=== PATIENT | female | born 1980 | race American Indian/Alaskan Native ===

== ENCOUNTER 2016-05-04 19:34 | Inpatient (IN) | payer OTHER, MEDICAID ==
[2016-05-04] MEDS ORDERED: BRETHINE IVP PRN (20:33)
[2016-05-04] MEDS ORDERED: PHENERGAN PO PRN (20:33)
[2016-05-04] MEDS ORDERED: ZOFRAN IV PRN (20:33)
[2016-05-04] MEDS ORDERED: BRETHINE SUB-Q PRN (20:33)
[2016-05-04] MEDS ORDERED: SUBLIMAZE IV PRN (20:33)
[2016-05-04] MEDS ORDERED: STADOL IV PRN (20:33)
[2016-05-04] MEDS ORDERED: NARCAN 0.4 MG/1 ML IV PRN (20:33)
[2016-05-04] MEDS ORDERED: MINERAL OIL PO PRN (20:33)
[2016-05-04] MEDS ORDERED: ePHEDrine SULFATE IV PRN (20:33)
--- NOTE | 2016-05-04 20:42 | History and Physical Report ---
History of Present Illness Date of examination: 05/04/16 Date of admission: 05/04/16 19:34 Chief complaint: Induction of labor History of present illness: Pt is a 35yo BF EDC 05/01/16; EGA 40 3/7 weeks presents from [facility] for induction of labor due to elevated BP's and LGA . BPP was 8/10 and EFW 4442gms (98%). She received care at [facility] since 11 weeks, and course has been unremarkable except for AMA and Morbid Obesity. records are available and GBS is Positive. 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 Social history: no significant social history, single - Obstetrical History Expected Date of Delivery: 05/01/16 Actual Gestation: 40 Week(s) 4 Day(s) : 5 Medications and Allergies Allergies Allergy/AdvReac Type Severity Reaction Status Date / Time No Known Allergies Allergy Verified 05/04/16 20:51 Home Medications Medication Instructions Recorded Confirmed Last Taken Type Vit-Fe Fumar-FA [ 1 tab PO QDAY 05/05/16 05/05/16 Unknown History Vitamin] Review of Systems All systems: negative - Physical Exam Breasts: Positive: deferred Cardiovascular: Regular rate Lungs: Positive: Clear to auscultation Abdomen: Positive: normal appearance Genitourinary (Female): Positive: normal external genitalia Vagina: Positive: normal moisture Uterus: Positive: enlarged Extremities: Positive: normal - Obstetrical FHR: category 1 Uterine Contraction Monitor Mode: External Cervical Dilatation: 3 Cervical Effacement Percentage: 50 station: -2 Uterine Contraction Pattern: Irregular Uterine Contraction Intensity: Mild Results Result Diagrams: 05/04/16 22:45 All other labs normal. Ultrasound: report reviewed ([facility] 810) Assessment and Plan - Patient Problems (1) 40 weeks gestation of Onset Date: 05/04/16 Current Visit: Yes Status: Acute Plan to address problem: A: IUP @ 40 4/7 weeks Morbid Obesity AMA PIH LGA infant P: Admit for pitocin induction of labor (2) LGA (large for gestational age) fetus affecting management of mother Onset Date: 05/04/16 Current Visit: Yes Status: Acute
[2016-05-04] MEDS ORDERED: PITOCin/NS 30 UNIT/500ML 500 ML IV SCH (21:00)
[2016-05-04 23:01] LABS: Hematocrit 27.9 % (30.3-42.9); Hemoglobin 8.9 gm/dl (10.1-14.3); Mean Corpuscular HGB Conc 32 % (30-34); Mean Corpuscular Hemoglobin 25 pg (28-32); Mean Corpuscular Volume 77 fl (79-97); Red Blood Count 3.61 M/mm3 (3.65-5.03); Red Cell Distribution Width 16.7 % (13.2-15.2)
[2016-05-04 23:54] LABS: Platelet Count 87 K/mm3 (140-440)
[2016-05-05] MEDS: LACTATED RINGERS 1,000 ML IV SCH ×3 (01:10→14:23)
[2016-05-05] MEDS: PITOCin/NS 30 UNIT/500ML 30 UNIT/500 ML BAG IV SCH ×7 (08:45→13:19)
--- NOTE | 2016-05-05 13:06 | Progress Note ---
Assessment and Plan - Patient Problems (1) 40 weeks gestation of Onset Date: 05/04/16 Current Visit: Yes Status: Acute Plan to address problem: A: IUP @ 40 4/7 weeks Morbid Obesity AMA PIH - BP's stable. Not on magnesium sulfate or antihypertensive medication LGA infant Thrombocytopenia P: Will continue to monitor tracing, and proceed with Operative delivery if no improvement in 1 hour or significant cervical change. Discussed plan with family members. Will repeat PIH labs (2) LGA (large for gestational age) fetus affecting management of mother Onset Date: 05/04/16 Current Visit: Yes Status: Acute Subjective - Subjective Date of service: 05/05/16 Principal diagnosis: IUP @ 40 4/7 weeks; PIH; Morbid Obesity; AMA; LGA Interval history: Pt is currently on pitocin 12mu/min and alfonso q 2-4 mins. monitoring variability is not great, but has areas of reactivity. Patient reports: loss of fluid (AROM), movement normal, contractions, no new complaints, no vaginal bleeding Objective - Vital Signs Vital Signs: Vital Signs - 12hr 05/05/16 05/05/16 05/05/16 02:13 02:29 03:42 Temperature 98.3 F Pulse Rate 105 H 115 H Respiratory 20 Rate Blood Pressure 127/67 121/58 05/05/16 05/05/16 05/05/16 05:12 06:00 06:42 Temperature 98.6 F Pulse Rate 108 H 96 H Respiratory Rate Blood Pressure 119/58 143/74 05/05/16 05/05/16 05/05/16 07:00 07:20 07:50 Temperature 97.0 F L Pulse Rate 109 H 103 H Respiratory Rate Blood Pressure 127/70 127/64 05/05/16 05/05/16 05/05/16 08:21 08:50 09:20 Temperature Pulse Rate 93 H 105 H 114 H Respiratory Rate Blood Pressure 135/71 139/75 131/81 05/05/16 05/05/16 05/05/16 09:50 10:20 10:50 Temperature Pulse Rate 106 H 100 H 100 H Respiratory Rate Blood Pressure 134/74 128/72 119/58 05/05/16 05/05/16 05/05/16 11:20 11:51 12:51 Temperature Pulse Rate 104 H 107 H 106 H Respiratory Rate Blood Pressure 133/68 141/64 118/74 - Exam Cardiovascular: Regular rate Abdomen: Present: normal appearance Uterus: Present: normal, fundal height at umbilicus FHR: category 2 (Decreased variability) Uterine Contraction Monitor Mode: Internal Cervical Dilatation: 3 Cervical Effacement Percentage: 50 station: -2 Uterine Contraction Pattern: Regular Uterine Tone Measurement Phase: Contraction Uterine Contraction Intensity: Mild - Labs Labs: Abnormal Labs 05/04/16 22:45 RBC 3.61 L Hgb 8.9 L Hct 27.9 L MCV 77 L MCH 25 L RDW 16.7 H Plt Count 87 L Laboratory Results - last 24 hr 05/04/16 05/04/16 22:45 22:45 WBC 10.0 RBC 3.61 L Hgb 8.9 L Hct 27.9 L MCV 77 L MCH 25 L MCHC 32 RDW 16.7 H Plt Count 87 L Blood Type A POSITIVE Antibody Screen Negative
[2016-05-05 13:41] LABS: Hematocrit 26.5 % (30.3-42.9); Hemoglobin 8.4 gm/dl (10.1-14.3); Mean Corpuscular HGB Conc 32 % (30-34); Mean Corpuscular Volume 77 fl (79-97); Red Blood Count 3.45 M/mm3 (3.65-5.03); Red Cell Distribution Width 17.4 % (13.2-15.2); White Blood Count 8.3 K/mm3 (4.5-11.0)
[2016-05-05 13:42] LABS: Mean Corpuscular Hemoglobin 24 pg (28-32)
[2016-05-05 13:43] LABS: Platelet Count 78 K/mm3 (140-440)
[2016-05-05 13:48] LABS: Alanine Aminotransferase 18 units/L (7-56); Albumin 3.5 g/dL (3.9-5); Albumin/Globulin Ratio 1.1 %; Alkaline Phosphatase 101 units/L (35-129); Anion Gap 20 mmol/L; Bilirubin,Total 0.3 mg/dL (0.1-1.2); Blood Urea Nitrogen 5 mg/dL (7-17); Calcium 8.8 mg/dL (8.4-10.2); Carbon Dioxide 20 mmol/L (22-30); Chloride 100.6 mmol/L (98-107); Glucose 70 mg/dL (65-100); Potassium 3.9 mmol/L (3.6-5.0); Sodium 137 mmol/L (137-145); Total Protein 6.8 g/dL (6.3-8.2)
[2016-05-05] MEDS ORDERED: PEPCID IV ONE (16:49)
[2016-05-05] MEDS ORDERED: BICITRA PO ONE (16:49)
[2016-05-05] MEDS ORDERED: REGLAN IV ONE (16:49)
[2016-05-05 16:52] LABS: Bilirubin,Urine NEG (Negative); Blood,Urine SM (Negative); Ketones,Urine NEG (Negative); Leukocyte Esterase,Urine TR (Negative); Mucus,Urine FEW /HPF; Nitrite,Urine NEG (Negative); Protein,Urine <15 mg/dL mg/dL (Negative); Urobilinogen,Urine < 2.0 mg/dL (<2.0)
[2016-05-05] MEDS ORDERED: NACL 0.9% 500 ML 500 ML IV ONE (16:59)
[2016-05-05] MEDS ORDERED: ANCEF/STERILE WATER 2 GM/20 ML 2 GM/20 ML SYRINGE IV NR (17:00)
[2016-05-05] MEDS ORDERED: PITOCin/NS 20 UNIT/1000ML DRIP 20 UNITS/1,000 ML BAG IV NR (17:00)
[2016-05-05] MEDS ORDERED: LACTATED RINGERS 1,000 ML IV NR (17:00)
[2016-05-05] MEDS ORDERED: QUELICIN ONE (17:28)
[2016-05-05] MEDS ORDERED: DIPRIVAN 10 MG/ML IV ONE (17:29)
[2016-05-05] MEDS ORDERED: SUBLIMAZE ONE ×2 (17:30→18:30)
[2016-05-05] MEDS ORDERED: ANCEF/STERILE WATER 2 GM/20 ML IV ONE (17:33)
[2016-05-05] MEDS ORDERED: NACL 0.9% IR ONE (17:40)
[2016-05-05] MEDS ORDERED: WATER FOR IRRIG STERILE IR ONE (17:40)
[2016-05-05] MEDS: PITOCin/NS 20 UNIT/1000ML DRIP 20 UNIT/1,000 ML BAG IV SCH ×2 (17:46→18:40)
[2016-05-05] MEDS ORDERED: TORADOL ONE (17:56)
--- NOTE | 2016-05-05 18:47 | Operative Report ---
Operative Report Operative Report: Date of procedure: 05/05/2016 Pre-operative diagnosis: 1. Intrauterine at 40-4/7 weeks 2. Gestational hypertension 3. Failed induction of labor 4. intolerance of labor 5. Advanced maternal age 6. Morbid obesity 7. macrosomia 8. Thrombocytopenia none 9. Desires permanent sterilization Post-operative diagnosis: Same with fibroid uterus Procedure name(s): 1. Primary low transverse section 2. Bilateral tubal ligation Surgeon: Yifan Dykes MD Director Of Transportation: None Anesthesia: General endotracheal intubation by Dr. Jaleel Alvarado EBL: 1000 mL's Findings: A 4238 g female Apgars 8 at 1 minute 9 at 5 minutes. Clear amniotic fluid. Fibroid uterus. Normal tubes and multicystic ovaries bilaterally Procedure: After the patient was prepped and draped in usual sterile fashion, and after general anesthesia was administered, the skin knife was used to make a transverse skin incision. The incision was excised down to layer of the fascia, which was nicked in the midline and extended laterally using the Bovie cautery. The rectus muscles were dissected off the rectus fascia both superiorly and inferiorly. The rectus bellies in the midline, and the peritoneum was entered under direct visualization. The peritoneal incision was extended superiorly and inferiorly. A bladder flap was created and the bladder blade was then placed. The uterus was scored in a curvilinear linear fashion, entered in the midline revealing clear amniotic fluid. The infant's head was delivered onto the surgical field with the aid of a vacuum and a T in the incision, and the oropharynx and nasopharynx were bulb suctioned. The rest of the 's body was delivered, cord was doubly clamped and cut and the infant was handed to the waiting respiratory team. The placenta was manually removed from the uterus, and the uterus removed from its normal anatomical position. After gentle uterine lavage, the incision was inspected and found to be without extensions. It was then closed in 2 layers using 0 Vicryl suture in a running interlocking fashion, the second layer imbricating the first. After good hemostasis was achieved, copious amounts or irrigation was performed, and the gutters were suctioned free of blood and blood clots. Attention was then turned to the tubal ligation. First the right fallopian tube was grasped using a [place], and the Fil[place]ie clip was applied to the proximal portion of the tube. Next the left fallopian tube was grasped using the [place], and the Filshie clip was applied to the proximal portion of the tube. The Tisseel sealant was sprayed across the uterine incision, and excellent hemostasis was assured. The uterus, which had multiple fibroids, was then returned to its normal anatomical position, and after excellent hemostasis assured, the peritoneum was reapproximated using 3-0 Vicryl suture in a running interlocking fashion, and then the rectus muscles were reapproximated using 3-0 Vicryl suture in a [id number] configuration. The fascia was then reapproximated using 0 Vicryl suture in running interlocking fashion. The subcutaneous layer was made hemostatic using Bovie cautery, and reapproximated using 3-0 Vicryl suture. The Tisseel sealant was sprayed across the fascial incision and the skin edges reapproximated using 4-0 Vicryl suture in a subcuticular fashion. Patient tolerated the procedure well was transported to recovery in stable condition.
[2016-05-05] MEDS ORDERED: BENADRYL IV PRN (18:48)
[2016-05-05] MEDS ORDERED: REGLAN IV PRN (18:48)
[2016-05-05] MEDS ORDERED: NARCAN 0.4 MG/1 ML IV PRN ×2 (18:48→20:00)
[2016-05-05] MEDS ORDERED: TYLENOL PO ONE (18:49)
[2016-05-05] MEDS ORDERED: BENADRYL IV ONE (18:49)
--- NOTE | 2016-05-05 18:51 | Anesthesia Consultation ---
Anesthesia Consult and Med Hx Date of service: 05/05/16 - Airway Anesthetic Teeth Evaluation: Good ROM Head & Neck: Adequate Mental/Hyoid Distance: Adequate Mallampati Class: Class II Intubation Access Assessment: Good - Pulmonary Exam CTA: Yes - Cardiac Exam Cardiac Exam: RRR - Pre-Operative Health Status ASA Pre-Surgery Classification: ASA3 Proposed Anesthetic Plan: General - Pulmonary Hx Asthma: No COPD: No Hx Pneumonia: No - Cardiovascular System Hx Hypertension: Yes - Central Nervous System Hx Seizures: No Hx Psychiatric Problems: No - Endocrine Hx Renal Disease: No Hx End Stage Renal Disease: No Hx Hypothyroidism: No Hx Hyperthyroidism: No - Hematic Hx Anemia: No Hx Sickle Cell Disease: No - Other Systems Hx Alcohol Use: No - Additional Comments Anesthesia Medical History Comments: dolores, PIH,
--- NOTE | 2016-05-05 18:52 | Post Anesthesia Evaluation ---
- Post Anesthesia Evaluation Patient Participated: Yes Airway Patent: Yes Stable Respiratory Function: Yes Nausea/Vomiting: No Temp > 96.8F: Yes Pain Manageable: Yes Adequeate Hydration: Yes Anesthesia Complications: No
[2016-05-05] MEDS ORDERED: TUCKS PAD TP PRN (18:54)
[2016-05-05] MEDS ORDERED: LANSINOH TP PRN (18:54)
[2016-05-05] MEDS ORDERED: ANCEF/NS 1 GM/50 ML 1 GM/50 ML BAG IV SCH (19:00)
[2016-05-05] MEDS ORDERED: SODIUM CHLORIDE FLUSH SYRINGE 10 ML IV NR (19:00)
[2016-05-05] MEDS ORDERED: D5LR 1,000 ML IV SCH (19:00)
[2016-05-05] MEDS ORDERED: PITOCin/NS 20 UNIT/1000ML DRIP 20 UNITS/1,000 ML BAG IV SCH (19:00)
[2016-05-05] MEDS ORDERED: MORPHINE PCA 30MG/30ML IV SCH (19:00)
[2016-05-05] MEDS ORDERED: NACL 0.9% 1000 ML 1,000 ML IV SCH (19:00)
[2016-05-05] MEDS ORDERED: NACL 0.9% 500 ML 500 ML ONE (19:14)
[2016-05-05] MEDS ORDERED: MYLICON PO PRN (20:00)
[2016-05-05] MEDS ORDERED: PHENERGAN PR PRN (20:00)
[2016-05-05] MEDS ORDERED: TORADOL IV PRN (20:00)
[2016-05-05] MEDS ORDERED: TYLENOL PO PRN (20:00)
[2016-05-05] MEDS ORDERED: SENOKOT PO PRN (22:00)
[2016-05-05] MEDS ORDERED: MILK OF MAGNESIA PO PRN (22:00)
[2016-05-06 09:06] LABS: Basophils % (Auto) 0.2 % (0.0-1.8); Eosinophils % (Auto) 0.4 % (0.0-4.3); Hematocrit 22.9 % (30.3-42.9); Hemoglobin 7.2 gm/dl (10.1-14.3); Mean Corpuscular HGB Conc 32 % (30-34); Mean Corpuscular Volume 77 fl (79-97); Red Blood Count 2.96 M/mm3 (3.65-5.03); Red Cell Distribution Width 17.6 % (13.2-15.2); White Blood Count 10.6 K/mm3 (4.5-11.0)
[2016-05-06 09:14] LABS: Mean Corpuscular Hemoglobin 24 pg (28-32)
[2016-05-06 09:16] LABS: Platelet Count 73 K/mm3 (140-440)
--- NOTE | 2016-05-06 11:39 | Progress Note ---
Assessment and Plan - Patient Problems (1) 40 weeks gestation of Onset Date: 05/04/16 Current Visit: Yes Status: Resolved (2) LGA (large for gestational age) fetus affecting management of mother Onset Date: 05/04/16 Current Visit: Yes Status: Resolved (3) Status post primary low transverse section Onset Date: 05/06/16 Current Visit: Yes Status: Acute Plan to address problem: A: S/P LTCS with BTL - POD #1 Doing well Asymptomatic anemia - stable, but elevated pulse. She received 2 units of blood immediately post op. PIH - stable. Currently not on antihypertensive meds P: Continue RPOC Encourage ambulation. Will transfuse 1 unit more of PRBC's Begin Labetolol 100mg BID (4) PIH ( induced hypertension) Onset Date: 05/06/16 Current Visit: Yes Status: Acute Qualifiers: Trimester: third trimester Qualified Code(s): O13.3 - Gestational [ -induced] hypertension without significant proteinuria, third trimester Subjective - Subjective Date of service: 05/06/16 Principal diagnosis: s/p LTCS with BTL - POD#1 Interval history: Pt is feeling well without complaints. Bleeding improved. Tolerating a liquid diet without nausea or vomiting. Denies headaches, blurred vision or dizziness. Patient reports: appetite normal, voiding normally, pain well controlled, ambulating normally, no dizzy ambulation, no flatus [place]: doing well, bottle feeding Objective - Vital Signs Latest vital signs: Vital Signs Temp Pulse Pulse Pulse Resp BP BP 05/06/16 08:45 98.4 F 119 H 28 H 140/79 05/06/16 04:00 99 F 108 H 20 146/75 05/06/16 00:15 98.9 F 111 H 20 140/66 05/05/16 22:46 97.8 F 106 H 18 160/79 05/05/16 22:14 98.2 F 110 H 18 159/91 05/05/16 22:00 18 05/05/16 21:37 97.7 F 114 H 18 149/84 05/05/16 21:12 98.2 F 112 H 20 153/79 05/05/16 20:57 98.6 F 106 H 20 156/64 05/05/16 20:35 98.6 F 109 H 20 159/84 05/05/16 19:53 98.4 F 110 H 18 144/69 05/05/16 19:49 99.5 F 109 H 16 133/74 05/05/16 19:45 99.3 F 112 H 16 133/74 05/05/16 19:30 116 H 13 138/72 05/05/16 19:21 21 05/05/16 19:19 98.7 F 118 H 24 127/76 05/05/16 19:15 111 H 25 H 140/70 05/05/16 19:04 99.1 F 112 H 22 119/50 05/05/16 19:00 113 H 22 130/73 05/05/16 18:55 108 H 16 119/50 05/05/16 18:50 104 H 21 127/61 05/05/16 18:45 99.1 F 125 H 23 133/65 05/05/16 18:41 05/05/16 16:50 111 H 157/73 05/05/16 16:20 100 H 105/59 05/05/16 15:50 118 H 154/66 05/05/16 15:20 93 H 118/76 05/05/16 14:51 112 H 126/65 05/05/16 14:20 111 H 128/61 05/05/16 13:51 100 H 142/65 05/05/16 13:19 106 H 118/74 05/05/16 12:51 106 H 118/74 05/05/16 12:43 107 H 141/64 05/05/16 11:51 107 H 141/64 Pulse Ox 05/06/16 08:45 05/06/16 04:00 05/06/16 00:15 05/05/16 22:46 05/05/16 22:14 05/05/16 22:00 05/05/16 21:37 05/05/16 21:12 05/05/16 20:57 05/05/16 20:35 05/05/16 19:53 05/05/16 19:49 96 05/05/16 19:45 97 05/05/16 19:30 98 05/05/16 19:21 05/05/16 19:19 97 05/05/16 19:15 96 05/05/16 19:04 99 05/05/16 19:00 99 05/05/16 18:55 100 05/05/16 18:50 100 05/05/16 18:45 100 05/05/16 18:41 89 05/05/16 16:50 05/05/16 16:20 05/05/16 15:50 05/05/16 15:20 05/05/16 14:51 05/05/16 14:20 05/05/16 13:51 05/05/16 13:19 05/05/16 12:51 05/05/16 12:43 05/05/16 11:51 Intake and Output 05/05/16 05/06/16 05/06/16 22:59 06:59 14:59 Intake Total 2800 120 750 Output Total 700 200 Balance 2100 -80 750 Intake: IV 2300 Lactated Ringers 1,000 ml 500 @ 125 mls/hr IV DIRECT NANO Rx#:[id number] Oral 750 Intake, Free Water 120 Blood Product 500 Leukoreduced Red Blood 250 Cells Unit [id number] Leukoreduced Red Blood 250 Cells Unit [id number] Output: Urine 700 200 Indwelling Catheter 300 200 Other: Total, Intake Amount 750 Total, Output Amount 300 200 # Voids Void 1 Estimated Blood Loss 1,000 - Exam Breasts: Present: deferred Cardiovascular: Present: Regular rate Lungs: Present: Clear to auscultation Abdomen: Present: normal appearance, soft Uterus: Present: normal, firm, fundal height below umbilicus Extremities: Present: normal Incision: Present: normal, dry, intact, dressed - Labs Labs: Abnormal lab results 05/04/16 05/05/16 05/05/16 Range/Units 22:45 13:12 13:25 RBC 3.45 L (3.65-5.03) M/mm3 Hgb 8.4 L (10.1-14.3) gm/dl Hct 26.5 L (30.3-42.9) % MCV 77 L (79-97) fl MCH 24 L (28-32) pg RDW 17.4 H (13.2-15.2) % Plt Count 78 L (140-440) K/mm3 Lymph % (Auto) (13.4-35.0) % [place] % (Auto) (0.0-7.3) % Lymph # (1.2-5.4) K/mm3 Seg Neutrophils % (40.0-70.0) % Seg Neutrophils # (1.8-7.7) K/mm3 Carbon Dioxide 20 L (22-30) mmol/L BUN 5 L (7-17) mg/dL Creatinine 0.5 L (0.7-1.2) mg/dL Albumin 3.5 L (3.9-5) g/dL Crossmatch See Detail 05/06/16 Range/Units 08:00 RBC 2.96 L (3.65-5.03) M/mm3 Hgb 7.2 L (10.1-14.3) gm/dl Hct 22.9 L (30.3-42.9) % MCV 77 L (79-97) fl MCH 24 L (28-32) pg RDW 17.6 H (13.2-15.2) % Plt Count 73 L (140-440) K/mm3 Lymph % (Auto) 8.8 L (13.4-35.0) % [place] % (Auto) 7.7 H (0.0-7.3) % Lymph # 0.9 L (1.2-5.4) K/mm3 Seg Neutrophils % 82.9 H (40.0-70.0) % Seg Neutrophils # 8.7 H (1.8-7.7) K/mm3 Carbon Dioxide (22-30) mmol/L BUN (7-17) mg/dL Creatinine (0.7-1.2) mg/dL Albumin (3.9-5) g/dL Crossmatch Laboratory Tests 05/04/16 05/04/16 05/05/16 22:45 22:45 13:12 WBC 10.0 RBC 3.61 L Hgb 8.9 L Hct 27.9 L MCV 77 L MCH 25 L MCHC 32 RDW 16.7 H Plt Count 87 L Lymph % (Auto) [place] % (Auto) Eos % (Auto) Baso % (Auto) Lymph # [place] # Eos # Baso # Seg Neutrophils % Seg Neutrophils # Sodium 137 Potassium 3.9 Chloride 100.6 Carbon Dioxide 20 L Anion Gap 20 BUN 5 L Creatinine 0.5 L Estimated GFR > 60 BUN/Creatinine Ratio 10.00 Glucose 70 Calcium 8.8 Total Bilirubin 0.3 AST 21 ALT 18 Alkaline Phosphatase 101 Total Protein 6.8 Albumin 3.5 L Albumin/Globulin Ratio 1.1 Urine Color Urine Turbidity Urine pH Ur Specific [place] Urine Protein Urine Glucose (UA) Urine Ketones Urine Blood Urine Nitrite Urine Bilirubin Urine Urobilinogen Ur Leukocyte Esterase Urine WBC (Auto) Urine RBC (Auto) U Epithel Cells (Auto) Calcium Oxalate Crystal Urine Mucus Blood Type A POSITIVE Antibody Screen Negative Crossmatch See Detail 05/05/16 05/05/16 05/06/16 13:25 16:26 08:00 WBC 8.3 10.6 RBC 3.45 L 2.96 L Hgb 8.4 L 7.2 L Hct 26.5 L 22.9 L MCV 77 L 77 L MCH 24 L 24 L MCHC 32 32 RDW 17.4 H 17.6 H Plt Count 78 L 73 L Lymph % (Auto) 8.8 L [place] % (Auto) 7.7 H Eos % (Auto) 0.4 Baso % (Auto) 0.2 Lymph # 0.9 L [place] # 0.8 Eos # 0.0 Baso # 0.0 Seg Neutrophils % 82.9 H Seg Neutrophils # 8.7 H Sodium Potassium Chloride Carbon Dioxide Anion Gap BUN Creatinine Estimated GFR BUN/Creatinine Ratio Glucose Calcium Total Bilirubin AST ALT Alkaline Phosphatase Total Protein Albumin Albumin/Globulin Ratio Urine Color Yellow Urine Turbidity Slightly-cloudy Urine pH 6.0 Ur Specific [place] 1.011 Urine Protein <15 mg/dl Urine Glucose (UA) Neg Urine Ketones Neg Urine Blood Sm Urine Nitrite Neg Urine Bilirubin Neg Urine Urobilinogen < 2.0 Ur Leukocyte Esterase Tr Urine WBC (Auto) 1.0 Urine RBC (Auto) 3.0 U Epithel Cells (Auto) 1.0 Calcium Oxalate Crystal 3+ Urine Mucus Few Blood Type Antibody Screen Crossmatch
[2016-05-06] MEDS: PRENATAL VITAMIN PO SCH (12:00)
[2016-05-06] MEDS: PERCOCET 5/325 PO PRN ×2 (12:00→19:18)
[2016-05-06] MEDS: FEOSOL PO SCH (12:00)
[2016-05-06] MEDS: SENOKOT S PO SCH ×2 (12:00→21:35)
[2016-05-06] MEDS ORDERED: NACL 0.9% 500 ML 500 ML IV ONE (12:02)
[2016-05-06] MEDS: NORMODYNE PO SCH ×2 (12:50→21:33)
[2016-05-06] MEDS ORDERED: M-M-R II VACCINE SUB-Q ONE (18:57)
[2016-05-06] MEDS ORDERED: BOOSTRIX IM ONE (18:57)
[2016-05-07] MEDS: PERCOCET 5/325 PO PRN (05:19)
[2016-05-07] MEDS ORDERED: BOOSTRIX IM ONE (06:00)
[2016-05-07 07:02] LABS: Hematocrit 24.2 % (30.3-42.9); Hemoglobin 7.8 gm/dl (10.1-14.3)
--- NOTE | 2016-05-07 07:48 | Progress Note ---
Assessment and Plan POD 2 s/p LTCS & BTL -Doing well Issues -Pre-E -Anemia s/p 3 units PRBC (H/H after last unit given at ~ 13:00 on 05/06/16 was 7.8 , will rpt H/H in ~ 4 hrs) P: -Rpt H/H at ~ 11:00 -Continue routine post-op care -Increase Labetalol to 200mg BID -Anticipate D/C in 24 hrs - Patient Problems (1) Status post primary low transverse section Onset Date: 05/06/16 Current Visit: Yes Status: Acute Subjective - Subjective Date of service: 05/07/16 Principal diagnosis: s/p LTCS with BTL - POD#2 Interval history: Patient was seen and examined, stable doing well. Pain well controlled, adequate bowel bladder function Patient reports: appetite normal, voiding normally, pain well controlled, ambulating normally, no dizzy ambulation : doing well Objective - Vital Signs Latest vital signs: Vital Signs Temp Pulse Pulse Resp BP BP BP 05/07/16 04:35 98 F 89 22 140/62 05/06/16 23:40 140/66 05/06/16 21:33 100 H 150/75 05/06/16 16:16 98.4 F 101 H 24 146/73 05/06/16 15:16 98.2 F 105 H 20 134/66 05/06/16 14:27 98.1 F 105 H 22 146/68 05/06/16 14:02 98.1 F 103 H 20 135/63 05/06/16 13:38 98.2 F 98 H 20 132/56 05/06/16 12:50 141/68 05/06/16 12:45 141/68 05/06/16 08:45 98.4 F 119 H 28 H 140/79 Intake and Output 05/06/16 05/07/16 05/07/16 22:59 06:59 14:59 Intake Total 750 700 Output Total 550 Balance 750 150 Intake: Oral 500 700 Blood Product 250 Leukoreduced Red Blood 250 Cells Unit [id number] Output: Urine 550 Void 550 Other: Total, Intake Amount 500 700 Total, Output Amount 550 # Voids Void 1 - Exam Abdomen: Present: normal appearance, soft. Absent: distention, tenderness, guarding, rigidity Extremities: Present: normal Incision: Present: dry, intact - Labs Labs: Abnormal lab results 05/04/16 05/06/16 05/07/16 Range/Units 22:45 08:00 06:35 RBC 2.96 L (3.65-5.03) M/mm3 Hgb 7.2 L 7.8 L (10.1-14.3) gm/dl Hct 22.9 L 24.2 L (30.3-42.9) % MCV 77 L (79-97) fl MCH 24 L (28-32) pg RDW 17.6 H (13.2-15.2) % Plt Count 73 L (140-440) K/mm3 Lymph % (Auto) 8.8 L (13.4-35.0) % [place] % (Auto) 7.7 H (0.0-7.3) % Lymph # 0.9 L (1.2-5.4) K/mm3 Seg Neutrophils % 82.9 H (40.0-70.0) % Seg Neutrophils # 8.7 H (1.8-7.7) K/mm3 Crossmatch See Detail
[2016-05-07] MEDS ORDERED: NORMODYNE PO SCH (07:50)
[2016-05-07] MEDS: PRENATAL VITAMIN PO SCH (11:16)
[2016-05-07] MEDS: FEOSOL PO SCH (11:17)
[2016-05-07] MEDS: NORMODYNE PO SCH ×2 (11:17→22:33)
[2016-05-07 11:43] LABS: Hematocrit 26.1 % (30.3-42.9); Hemoglobin 8.3 gm/dl (10.1-14.3); Mean Corpuscular HGB Conc 32 % (30-34); Mean Corpuscular Volume 79 fl (79-97); Platelet Count 107 K/mm3 (140-440); Red Blood Count 3.32 M/mm3 (3.65-5.03); Red Cell Distribution Width 18.1 % (13.2-15.2); White Blood Count 13.6 K/mm3 (4.5-11.0)
[2016-05-07 11:44] LABS: Mean Corpuscular Hemoglobin 25 pg (28-32)
[2016-05-07] MEDS: MOTRIN PO PRN ×2 (12:25→18:23)
[2016-05-07] MEDS: NORCO 5/325 PO PRN ×2 (12:25→18:22)
[2016-05-07] MEDS: SENOKOT S PO SCH (22:33)
[2016-05-08] MEDS: FEOSOL PO SCH (10:35)
[2016-05-08] MEDS: NORMODYNE PO SCH (10:35)
[2016-05-08] MEDS: PRENATAL VITAMIN PO SCH (10:35)
--- NOTE | 2016-05-08 12:43 | Progress Note ---
Assessment and Plan POD 3 s/p LTCS & BTL -Doing well Issues -Pre-E -Anemia s/p 3 units PRBC P: -Discharged home -Follow-Up in clinic in 4 days for BP check - Patient Problems (1) Status post primary low transverse section Onset Date: 05/06/16 Current Visit: Yes Status: Acute Subjective - Subjective Date of service: 05/08/16 Principal diagnosis: s/p LTCS with BTL - POD#3 Interval history: Patient was seen and examined, stable doing well. Pain well controlled, adequate bowel bladder function Patient reports: appetite normal, voiding normally, pain well controlled, flatus , ambulating normally, no dizzy ambulation [place]: doing well Objective - Vital Signs Latest vital signs: Vital Signs Temp Pulse Pulse Pulse Pulse Resp BP 05/08/16 11:49 98.2 F 98 H 20 05/08/16 08:35 98.0 F 86 18 05/08/16 04:05 80 05/08/16 00:45 98.4 F 96 H 18 05/07/16 22:33 88 132/70 05/07/16 22:00 98.3 F 105 H 20 05/07/16 18:23 20 05/07/16 18:22 20 05/07/16 16:26 98.5 F 100 H 22 BP BP 05/08/16 11:49 124/62 05/08/16 08:35 126/66 05/08/16 04:05 128/56 05/08/16 00:45 134/58 05/07/16 22:33 05/07/16 22:00 151/64 05/07/16 18:23 05/07/16 18:22 05/07/16 16:26 126/62 Intake and Output 05/07/16 05/08/16 05/08/16 22:59 06:59 14:59 Intake Total 360 240 360 Balance 360 240 360 Intake: Oral 240 360 Intake, Free Water 120 240 Other: Total, Intake Amount 240 360 # Voids Void 1 1 1 - Exam Abdomen: Present: normal appearance, soft. Absent: distention, tenderness, guarding, rigidity Uterus: Present: fundal height below umbilicus. Absent: tenderness Extremities: Present: normal Incision: Present: dry, intact
--- NOTE | 2016-05-08 12:47 | Discharge Summary ---
Providers - Providers Date of Admission: 05/04/16 19:34 Date of discharge: 05/08/16 Attending physician: SPENCER MCCORMICK Primary care physician: YOLANDA DENIS Hospitalization Reason for admission: induction of labor (Hypertension) Delivery: Procedure: primary low transverse Incision: normal, dry, intact Other procedures: none complications: none Discharge diagnosis: IUP at term delivered [place] baby: female Hospital course: Pt is a 35yo BF EDC 05/01/16; EGA 40 3/7 weeks presents from [facility] for induction of labor due to elevated BP's and LGA . BPP was 8/10 and EFW 4442gms (98%). She received care at [facility] since 11 weeks, and course has been unremarkable except for AMA and Morbid Obesity. records are available and GBS is Positive. Failed induction of labor performed. Post-op course complicated with elevated pressure control with labetalol Condition at discharge: Good Disposition: DISCHARGED TO HOME OR SELFCARE - Discharge Diagnoses (1) Status post primary low transverse section Status: Acute Plan - Discharge Medications Prescriptions: Ferrous Sulfate [Feosol 325 MG tab] 325 mg PO BID #60 tablet HYDROcodone/APAP 5-325 [[place] 5/325] 1 each PO Q6HR PRN #30 tablet PRN Reason: Pain Ibuprofen [Motrin] 800 mg PO Q8HR PRN #30 tablet PRN Reason: Moder Pain Unrelieved By [place] - Provider Discharge Summary Activity: no sex for 6 weeks, no heavy lifting 4 weeks, no strenuous exercise Diet: routine Additional instructions: [] Smoking cessation referral if applicable(refer to patient education folder for contact #) [] Refer to [employer] [employer] Booklet Call your doctor immediately for: * Fever > 100.5 * Heavy vaginal bleeding ( >1 pad per hour) * Severe persistent headache * Shortness of breath * Reddened, hot, painful area to leg or breast * Drainage or odor from incision. * Keep incision clean and dry at all times and follow doctor's instructions regarding bathing/showering - Follow up plan Follow up: SPENCER MCCORMICK MD [Staff Physician] - 3 Days
[2016-05-08] MEDS: SENOKOT S PO SCH (16:37)
[2016-05-08 16:39] VITALS: BP 134/71
== END 2016-05-08 13:45 | disposition home or self-care (01) | DRG 765 ==
LOC: APU 19:34 → LD 19:43 → OB 05-05 20:16
PROVIDERS: ADMIT Obstetrics & Gynecology; ATTEND Obstetrics & Gynecology
PROC: 10D00Z1 Extraction of Products of Conception, Low, Open Approach (ICD-10-PCS; principal; 2016-05-05)
PROC: 0UL70CZ Occlusion of Bilateral Fallopian Tubes with Extraluminal Device, Open Approach (ICD-10-PCS; 2016-05-05)
PROC: 10907ZC Drainage of Amniotic Fluid, Therapeutic from Products of Conception, Via Natural or Artificial Opening (ICD-10-PCS; 2016-05-05)
PROC: 30233N1 Transfusion of Nonautologous Red Blood Cells into Peripheral Vein, Percutaneous Approach (ICD-10-PCS; 2016-05-05)
DX: O14.94 Unspecified pre-eclampsia, complicating childbirth (principal); Z68.41 Body mass index [BMI] 40.0-44.9, adult; O99.12 Other diseases of the blood and blood-forming organs and certain disorders involving the immune mechanism complicating childbirth; O76 Abnormality in fetal heart rate and rhythm complicating labor and delivery; O99.824 Streptococcus B carrier state complicating childbirth; O36.63X0 Maternal care for excessive fetal growth, third trimester, not applicable or unspecified; E66.01 Morbid (severe) obesity due to excess calories; O13.4 Gestational [pregnancy-induced] hypertension without significant proteinuria, complicating childbirth; D69.6 Thrombocytopenia, unspecified; O34.13 Maternal care for benign tumor of corpus uteri, third trimester; O62.1 Secondary uterine inertia; O90.81 Anemia of the puerperium; D64.9 Anemia, unspecified; Z37.0 Single live birth; Z3A.40 40 weeks gestation of pregnancy; O09.523 Supervision of elderly multigravida, third trimester; Z30.2 Encounter for sterilization; O61.9 Failed induction of labor, unspecified
CPT/HCPCS: 36415; 80053; 81001; 85014; 85018; 85025; 85027; 86850; 86900; 86901; 86920; 90715; C9250; J0330; J0690; J1200; J1885; J2270; J2590; J2704; J2765; J3010; J7030; J7040; J7120; J7121; P9016

== ENCOUNTER 2016-10-29 12:55 | Outpatient (CLI) | payer OTHER ==
--- NOTE | 2016-10-29 14:41 | Mammography Report ---
BILATERAL MAMMOGRAM: FINDINGS: Baseline mammogram: There are scattered fibroglandular densities (approximately 25%-50% glandular). No mass, distortion, suspicious calcification, or skin change is seen. CAD was utilized. IMPRESSION: Negative mammogram. There is no mammographic evidence of malignancy. RECOMMENDATION: Follow-up per ACS guidelines. BI-RADS CATEGORY: 1 = Negative ACR BI-RADS MAMMOGRAPHIC CODES: 0 = Needs additional imaging evaluation; 1 = Negative; 2 = Benign; 3 = Probably benign; 4 = Suspicious; 5 = Malignant; 6 = Known biopsy-proven malignancy COMMENT: 1. Dense breast tissue, i.e., adenosis, fibrocystic changes, etc., may obscure an underlying neoplasm. 2. Approximately 10% of cancers are not detected with mammography. 3. A negative mammography report should not delay biopsy if a clinically suspicious mass is present. COMMENT: Patient follow-up letters are generated in [employer].
== END 2016-10-29 12:56 | disposition home or self-care (01) ==
LOC: MAMMO 12:55
PROVIDERS: ATTEND Advanced Practice Midwife
DX: Z12.31 Encounter for screening mammogram for malignant neoplasm of breast (principal); I10 Essential (primary) hypertension
CPT/HCPCS: 77067; G0202